=== PATIENT | female | born 1990 | race Caucasian/White ===

== ENCOUNTER 2017-04-13 13:38 | Emergency (ER) | payer OTHER, SELFPAY ==
[~2017-04-13] VITALS: Ht 149.9 cm; Wt 53.2 kg
[2017-04-13 13:39] VITALS: BP 109/64
[2017-04-13] MEDS ORDERED: ZYRT10TA2 PO (13:53)
--- NOTE | 2017-04-13 15:49 | REP ---
Duplex extremity venous ultrasound: Left lower extremity. History: Question DVT. Findings: The deep veins are anechoic and fully compressible from the groin to the popliteal fossa in the left lower extremity. Color flow imaging is homogeneous. Spectral Doppler interrogation demonstrates intact respiratory variation in flow and normal manual augmentation of flow. There is no evidence of deep vein thrombosis. Impression: Negative left lower extremity duplex venous ultrasound. No evidence of deep vein thrombosis. Signed by Tony Ordaz MD 04/13/2017 03:41 P
== END 2017-04-13 16:02 | disposition home or self-care (01) ==
LOC: M ED 13:38
DX: M76.62 Achilles tendinitis, left leg (principal)